=== PATIENT | male | born 1940 | race Caucasian/White ===

== ENCOUNTER 2016-11-07 23:25 | Observation (INO) | payer MEDICARE, MEDICAID ==
[~2016-11-07] VITALS: Ht 188 cm; Wt 58.1 kg
[~2016-11-07 23:25] MED LIST: ALBU8.5H2 INHALATION; AMOX-366 PO; ASPI81TA3 PO; ATOR40TA69 PO; CLOP75TA28 PO; HYDR-4003 PO; ISOS30TA4 PO; LISI-571 PO; METO25TA6 PO; PRE20 PO; SYMINH INHALATION
[2016-11-07 23:41] VITALS: BP 120/98; PULSE 95; RESP 16; O2SAT 95
[2016-11-08] VITALS (15 sets, daily range): BP systolic 97–134; BP diastolic 57–88; PULSE 52–118; RESP 14–26; O2SAT 88–94
[2016-11-08] LABS: BASOPHILS % (AUTO) 0.4 % (0-3); EOSINOPHILS % (AUTO) 0 % (0-5); MONOCYTES % (AUTO) 6.6 % (4-12); Mean Corpuscular Hemoglobin 29.2 pg (27.0-35.0); Mean Corpuscular Volume 88.8 fL (81-100); Platelet Count 198 bil/L (150-400)
[2016-11-08 00:16] LABS: TROPONIN T 0.01 ug/L (0.0-0.011)
[2016-11-08] MEDS ORDERED: Albuterol-Ipratropium 3 mL Inhalation Solution NEB ONE (01:40)
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
[2016-11-08] MEDS ORDERED: Albuterol 2.5 mg/3 mL Inhalation Solution NEB PRN (03:15)
[2016-11-08] MEDS ORDERED: Alum-Mag Hydrox-Simeth 30 mL Suspension PO PRN (03:15)
[2016-11-08] MEDS ORDERED: Polyethylene Glycol (PEG) 17 Gm Powder PO PRN (03:15)
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
--- NOTE | 2016-11-08 04:39 | NUR ---
Arrival to [facility] room 3019 Patient arrived to [facility] at 0330. Alert and oriented able to make needs known. admission assessment completed. patient unaware of his home medication name and dosing. States that his pharmacy is [facility] in [place]. No IV. patient on RA. denies SOB at this time. coughing occasionally swallowing his spit. Lungs sound coarse throughout will continue to monitor. Patient has a history of recent fall, bed alarm in place for safety.
[2016-11-08] MEDS: Albuterol-Ipratropium 3 mL Inhalation Solution NEB PRN ×2 (08:27→12:35)
[2016-11-08] MEDS: Fluticasone-Salmeterol 500-50 Inhaler INHALATION SCH ×2 (09:16→20:39)
[2016-11-08] MEDS: Heparin 5,000 Unit/mL Inj SUBQ SCH ×3 (09:18→23:38)
[2016-11-08] MEDS: Isosorbide Mononitrate 30 mg ER24 Tablet PO SCH (09:18)
--- NOTE | 2016-11-08 10:15 | DRSVH ---
PROCEDURE: X-RAY CHEST ONE VIEW, PORTABLE ([id number]) INDICATIONS: dyspnea TECHNIQUE: One view of the chest was acquired. COMPARISON: Merged With [facility], CR, XR CHEST 1VW (PORTABLE), 10/19/2016, 16:56. FINDINGS: Surgical changes and devices: Extensive postsurgical changes are redemonstrated in the mediastinum. Lungs and pleura: No pleural effusions or pneumothorax. There is hyperinflation of the lungs with f lattening of the hemidiaphragms compatible with COPD. there is bibasilar scarring again noted. No a cute consolidation. Mediastinum: Mediastinal contours appear unchanged. Heart size is normal. Bones and chest wall: No suspicious bony lesions. Overlying soft tissues appear unremarkable. IMPRESSION: 1. Findings compatible with COPD redemonstrated without acute consolidation. Dictated by: John Lo M.D. on 11/08/2016 at 10:11 Approved by: John Lo M.D. on 11/08/2016 at 10:11
[2016-11-08] MEDS: 0.9% Sodium Chloride 1,000 ML IV SCH ×3 (10:36→23:38)
--- NOTE | 2016-11-08 12:20 | NUR ---
IV/Nicotine/Diet/Sputum Pt with hx of smoking, last cigarette 2 days ago. Pt denied need for nicotine patch. Pt refused lunch, only had chocolate pudding off tray. When asked what else could be offered/favorite foods, pt pleasantly declined. When asked which foods were favored at home, responded with "a little bit of nothing". IV access d/c in ED. made aware. IVF d/c. Frequent wet/moist cough noted, obtained a sputum sample and sent to lab. Will continue with frequent rounding.
--- NOTE | 2016-11-08 15:14 | NUR ---
Social Work-initial assessment/readiness for discharge: Data:See initial assessment. Pt is a 76 y/o male who was admitted on 11/08/16 for COPD and generalized weakness per H&P. Pt's insurance is [employer] and PCP is Bryce William MD. EMR reviewed. SW met with pt at bedside to discuss discharge planning, SW role explained. Pt has been residing at home where he remains independent with basic ADLs. Pt uses a fww at baseline and does not drive. Pt has had HH in the past and has been to [facility] and [facility] in the past. Pt has no manager intermediate care or VA benefits. SW discussed DPOA/ advanced directive with pt, pt states he has completed this, SW encouraged pt to bring a copy into the hospital. PT evaluation is pending. SW provided pt with SNF and HH choice list. Pt would like to go back to [facility]. ROHAN reviewed EMR and pt has three day qualifying stay in September. SW faxed PASRR and facesheet to [facility] and provided access. Paperwork in the chart. SW will continue to follow. Assessment:Pt who would benefit from SNF. Plan:[facility] has been faxed. PT evaluation is pending. Pt has three day qualifying stay for SNF placement. Paperwork in the chart. SW will continue to follow. CATHERINE Mclaughlin Addendum: 11/08/16 at 1521 by ELOISA MALDONADO SS Amended: Links added.
--- NOTE | 2016-11-08 15:30 | NUR ---
NUTRITION ASSESSMENT: ASSESS:60 YO male known to our discipline admitted with generalized weakness, progressive to the point of falling 2 x prior to admission, started since chemo/radiation/new medication. He is currently being treated for thrush, hypoglycemia and pain. He has had a weight loss of 13.21% x 7 weeks, which indicates severe malnutrition. Family has been in discussion with hospice and yet remains full code. I discussed the potential for PEG tube placement in the event the family decides against hospice. Code status: limited interventions. 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 DIET:Heart healthy consistent carb. PO intake not yet recorded. Family reports he hasn't eaten anything for some time. He has no appetite. LABS: Reviewed. Chloride 94, Cr < 0.30, Glu 37, Ca 8.0, PABA 4. MEDICATIONS: Reviewed. Lasix, Coumadin. NUTRITION FOCUSED PHYSICAL ASSESSMENT: GI symptoms / stool: Family reporting constipation.Rodrigo: 12. Skin Integrity: Wound consult initiated related to open sacral wound; evaluation pending. ANTHROPOMETRICS: Current Wt: 50.6 kgBMI: 16.0 kg/m2. IBW: 72.73 kg (70% IBW) ESTIMATED NEEDS (CANCER CACHEXIA): Calories: 1771 - 2024 kcal (35 - 40 kcal / kg BW) Protein: 76 - 101 g protein (1.5 - 2.0 g / kg BW) NUTRITION DIAGNOSIS: 1)Severe malnutrition related to cancer cachexia, as evidenced by 13.21% weight loss x 7 weeks. INTERVENTION: 1) Will add supplements to trays. 2) [facility] in the event family wishes to pursue treatment. MONITOR/EVALUATE: Diet tolerance, PO intake, labs, GI/nutrition status. Follow up per high nutrition risk guidelines. Addendum: 11/08/16 at 1544 [address] THIS NOTE CHARTED ON WRONG PATIENT.
--- NOTE | 2016-11-08 15:56 | NUR ---
Evaluation completed. Please go to "Notes" then click on "Assessments and Notes" (bottom left corner of screen). Then select appropriate discipline tab on top of screen.
--- NOTE | 2016-11-08 16:27 | PCM.PNMED ---
Subjective Date of Service Nov 08, 2016 Exam Vital Signs Vital Sign - Last Date Time Temp Pulse Resp B/P Pulse Ox O2 Delivery O2 Flow Rate FiO2 11/08/16 14:31 36.8 53 18 97/57 92 Room Air 11/08/16 03:16 1 Lab and Diagnostics Result Diagram: 11/07/16234911/07/16 2350 Assessment & Plan Chart reviewed and the patient was examined. I agree with the admitting physician's assessment and plan. Disposition: Physical therapy recommends long term facility for this chronically ill patient. The patient was seen and examined together with Dr. Sullivan on 11/08/2013 and I agree with the history, exam and plan as outlined in the admission note. Pt was admitted today. Non billable rounding. VTE Prophylaxis: Sub-Q Heparin (Unfractionated) VTE Mechanical Devices: Venous Foot Pump Resuscitation Status: Limited Interventions Limited Interventions: Compressions, Cardioversion/Defibrillation, BiPAP, Medications and IV Fluid Destinee Sullivan DO Nov 08, 2016 16:27 Hi Mcfarland MD Nov 09, 2016 12:21
--- NOTE | 2016-11-08 17:23 | NUR ---
Observation information provided and explained.
--- NOTE | 2016-11-08 18:51 | NUR ---
RAMAKRISHNA Tele called reporting 18bts of VTACH in one-teens. Pt resting in bed. Asymptomatic. Will continue with frequent monitoring. Addendum: 11/08/16 at 1854 by DONATO LOPEZ RN Mg blood level ordered by
[2016-11-08 20:30] LABS: APPEARANCE,URINE HAZY (CLEAR,HAZY); COLOR,URINE YELLOW (YELLOW); OCCULT BLOOD,URINE NEGATIVE (NEGATIVE); PH,URINE 5.5 (5.0-8.0); UROBILINOGEN,URINE NORMAL (NORMAL)
[2016-11-08] MEDS ORDERED: Magnesium Sulf 2 Gm/50mL Water 2 GM in IV Premix 1 EACH IV ONE (23:05)
[2016-11-09] VITALS (12 sets, daily range): BP systolic 79–159; BP diastolic 41–84; PULSE 43–106; RESP 14–24; O2SAT 88–95
[2016-11-09] MEDS: Albuterol-Ipratropium 3 mL Inhalation Solution NEB PRN (04:50)
--- NOTE | 2016-11-09 05:29 | NUR ---
Breathing Patient awoke at 0430 complaining of shortness of breath, Patient 02 75% on RA. placed on 2L via NC o2 86%. RT called and up to give neb treatment. 02 up to 88%. patient encouraged to cough and deep breathe through nose. Will continue to monitor.
[2016-11-09] MEDS: Heparin 5,000 Unit/mL Inj SUBQ SCH ×2 (08:35→16:56)
[2016-11-09] MEDS: Isosorbide Mononitrate 30 mg ER24 Tablet PO SCH (08:35)
[2016-11-09] MEDS: Fluticasone-Salmeterol 500-50 Inhaler INHALATION SCH ×2 (08:35→19:46)
[2016-11-09] MEDS: HYDROcodone-APAP 5-325 mg Tablet PO PRN ×2 (08:37→17:33)
--- NOTE | 2016-11-09 08:57 | NUR ---
[facility] can accept with Dr. Ford to follow. Pt has 3 day inpt stay in September and is within the 30 day window. CATHERINE Mclaughlin
--- NOTE | 2016-11-09 08:57 | NUR ---
SNF choice list provided. CATHERINE Mclaughlin
[2016-11-09] MEDS: 0.9% Sodium Chloride 1,000 ML IV SCH (09:14)
[2016-11-09 09:39] LABS: Magnesium 2.1 mg/dL (1.6-2.6)
--- NOTE | 2016-11-09 10:49 | NUR ---
Social Work-readiness for discharge: Data:EMR Reviewed. Pt is on day 1 of hospitalization for COPD per H&P. Pt may be ready to discharge later today or tomorrow. PT worked with pt and pt only able to ambulated 2 ft, recommending SNF. SW spoke with Yuliet flores [facility] who confirms they are able to accept pt when ready and he has a 3 day qualifying stay in the last 30 days that he can use. Paperwork and PASRR in the chart. SW will continue to follow. Assessment:Pt who would benefit from SNF. Plan:[facility] has accepted with Dr. Ford to follow. Pt has a 3 day qualifying stay in the last 30 days that he can use. Paperwork and PASRR in the chart. SW will continue to follow. CATHERINE Mclaughlin
[2016-11-09 10:53] LABS: Mean Corpuscular Hemoglobin 28.9 pg (27.0-35.0); Mean Corpuscular Volume 89.4 fL (81-100)
--- NOTE | 2016-11-09 12:16 | NUR ---
HR/EKG Pt noted to be bradycardic and hypotensive. Tele called to report HR in low 40's then upper 30's. MD made aware. STAT EKG done, report given to MD. Pt asymptomatic. Lisinopril and Metoprolol d/c. Pt resting flat in bed. Bed alarm on. Call light in reach. Will continue with frequent rounding.
--- NOTE | 2016-11-09 16:13 | PCM.PNMED ---
Subjective Date of Service Nov 09, 2016 Subjective Today patient became hypotensive, bradycardic shortly after metoprolol 25 mg twice a day was given. Heart rate was in the high 30s, blood pressure in the 100/46 and trending downward. Patient is asymptomatic however. Patient had a ground-level fall on 11/07/2016, he reported "passed out". He was brought to [facility] initially for evaluation, which diagnosed him with left rib fracture and sent home. The shortness however worsen, and he was taken back from home by ambulance to [facility] ER for evaluation. Patient reported left flank pain, 8 out of 10, requiring multiple doses of Percocet. Patient also guards on that side. Exam Vital Signs Vital Sign - Last Date Time Temp Pulse Resp B/P Pulse Ox O2 Delivery O2 Flow Rate FiO2 11/09/16 13:53 36.7 45 16 79/43 89 Nasal Cannula 0.50 Intake and Output 11/08/16 11/08/16 11/09/16 Cumulative From/Thru 15:00 23:00 07:00 11/07/16 23:41 - 11/09/16 05:25 Intake Total 200 ml 200 ml Output Total 450 ml 450 ml Balance -250 ml -250 ml Intake Oral 200 ml 200 ml Output Urine Total 450 ml 450 ml Exam General: Cachectic HEENT: Normocephalic, atraumatic. External ears without defect. Pupils equal, round, and reactive to light and accommodation. Anicteric sclerae, moist conjunctivae, and no lid lag. Neck: Supple with full range of motion. No jugular venous distension. Cardiovascular: Regular rate and rhythm with no murmurs, rubs, or gallops appreciated Pulmonary: Wheezes bilaterally, some coarse breath, no noted crackles. Abdomen: Bowel tones present. Soft, tender on the left upper quadrant, guarding noted around that area, no ecchymosis noted Extremities: No clubbing, cyanosis, edema, or lymphadenopathy appreciated. Skin: Normal temperature, turgor, and texture; no rash, ulcers, or subcutaneous nodules appreciated. Neurological: Cranial nerves grossly intact. Normal muscle strength, tone, and bulk. Reflexes, coordination, and sensory function within normal limits. No known gait impairment. Psychiatric: Normal mood and affect. Alert and oriented to person, place, and time. IVs and Medications Medications Reviewed: Medications were reviewed in detail Medications Discontinued medication today Imdur metopolol lisinopril Lab and Diagnostics Result Diagram: 11/09/16 1045 11/09/16 0853 Assessment & Plan 76-year-old noncompliant male with h/o COPD, CAD, [place] s/p CABG, hypertension, atrial fibrillation not on anticoagulation, and recent NSTEMI presents with progressive shortness of breath and weakness. Had a He is being admitted for hypoxia and generalized weakness. Normocytic anemia, not present on admission, active - Hgb dropped from 14.8 to 10.9 - Uncertain etiology possibly secondary to trauma due to recent fall - Non contrast CT-abd Bradycardia, not present on admission, active - EKG shows juan pablo sinus - Possible medication related - Stop all beta blockers Hypotensive, not present on admission, active - Perhaps medication related - Stop lisinopril and Imdur - monitor Acute on chronic COPD exacerbation, present on admission, active - Severe COPD, fired hospice as he wanted to be readmitted to hospital should he gets SOB -Likely due to noncompliance. Possible viral URI given symptoms of coughs -Will continue with Duonebs Q4hwa -Short burst of Oral Prednisone 40mg x 3 days. -Keep O2 sats 88-92%. -Anti-tussive prn Paroxysmal A. Fib with RvR, POA - Hold metoprolol - hold aspirin, possible bleed. - May give Cardizem for HR >110 Generalized weakness, POA - Recently fell. - Social work and case management referral for placement. - PT/OT evaluation as needed Medication non compliance -Educate and Encourage medication compliance Acetaminophen for mild pain when necessary. Bowel regimen Senna and MiraLAX scheduled and PRN. Zofran when necessary for nausea and vomiting. Disposition: Likely be discharged on the today pending workup for anemia. VTE Prophylaxis: Sub-Q Heparin (Unfractionated) VTE Mechanical Devices: Intermittant Pneumatic CD Resuscitation Status: Limited Interventions Limited Interventions: Compressions, Cardioversion/Defibrillation, BiPAP, Medications and IV Fluid Keshav Carrillo DO Nov 09, 2016 16:13
[2016-11-09] MEDS ORDERED: 0.9% Sodium Chloride 1,000 ML IV SCH (16:15)
--- NOTE | 2016-11-09 16:58 | DRSVH ---
PROCEDURE: CT ABDOMEN AND PELVIS WITHOUT CONTRAST ([id number]) INDICATIONS: fall, retroperitoneal bleed? TECHNIQUE: Noncontrast 5 mm thick sections acquired from the diaphragms to the symphysis. 5 mm coronal and sagi ttal reformats were then performed. For radiation dose reduction, the following was used: automated exposure control, adjustment of mA and/or kV according to patient size. COMPARISON: [facility], CT, CT ABD PELVIS W CON, 07[facility]11/2016, 18:54[facility], 09/06/2016, 12:25. [facility], CT, CT ANGIO CHEST PE, 10/16, 9:53. FINDINGS: Image quality: Excellent. ABDOMEN: Lung bases: Lung bases are clear on the left except for slight atelectasis but there does appear to be mild or early pneumonia right lower lobe. Heart size is normal. Solid organs: Liver and spleen are normal in size. Gallbladder appears to contain small dependent l ayering calcifications, and there is soft tissue prominence that appears on prior CT scanning from to be contrast enhancing. This is suspicious for representing an early gallbladder malignancy. Pancreas is normal in contours. No adrenal nodules. Kidneys are normal in size, without hydronephro sis or nephrolithiasis. Peritoneum and bowel: Unenhanced bowel loops demonstrate normal wall thickness and caliber. No free fluid or air. Nodes and vessels: No retroperitoneal or mesenteric adenopathy by size criteria. Aorta and inferior vena cava are normal in caliber. Miscellaneous: No ventral hernias. PELVIS: Genitourinary: Bladder wall thickness is normal. Miscellaneous: No inguinal hernias or adenopathy. Bones: No suspicious bony lesions. No vertebral body compression fractures. IMPRESSION: 1. There is an unexpected coincidental finding of what appears to be an enhancing polypoid mass at t he gallbladder fundus, in addition to several posterior layering gallstones. Is recommended to obtai n dedicated gallbladder ultrasound tomorrow with attention to the gallbladder fundus to determine whe ther underlying early gallbladder malignancy is present. 2. Mild right lower lobe pneumonia. 3. No posttraumatic hemorrhage is found. Dictated by: Damián Donald M.D. on 11/09/2016 at 16:56 Approved by: Damián Donald M.D. on 11/09/2016 at 16:56
[2016-11-09] MEDS ORDERED: guaiFENesin 600 mg ER12 Tablet PO SCH (20:30)
[2016-11-10] VITALS (8 sets, daily range): BP systolic 94–125; BP diastolic 50–73; PULSE 57–69; RESP 16–26; O2SAT 86–95
[2016-11-10] MEDS: Heparin 5,000 Unit/mL Inj SUBQ SCH ×3 (00:15→16:30)
--- NOTE | 2016-11-10 06:06 | NUR ---
Oxygen Patient awoke this morning complaining that the oximask was making him cough. Patient switched to nasal cannula per preference. 1L 02 saturations 88-91%. patient coughing up thick sputum at bedside. will continue to monitor
[2016-11-10 08:17] LABS: BASOPHILS % (AUTO) 0.1 % (0-3); EOSINOPHILS % (AUTO) 0.1 % (0-5); MONOCYTES % (AUTO) 3.9 % (4-12); Mean Corpuscular Hemoglobin 28.6 pg (27.0-35.0); Mean Corpuscular Volume 90.6 fL (81-100); NEUTROPHILS % (AUTO) 76.1 % (40-74); Platelet Count 167 bil/L (150-400)
[2016-11-10] MEDS: Fluticasone-Salmeterol 500-50 Inhaler INHALATION SCH (10:41)
--- NOTE | 2016-11-10 11:06 | NUR ---
11/10/16 Wound Care [facility] Patient assessed for pressure ulcer protocol. Found to have a cluster of 4 stage III pressure ulcers to sacrum, present on admission. No other areas of redness or pressure noted. Patient with keratotic scabbing to right hip in areas of scaring that appears to be area of previous, now healed, skin breakdown. Patient instructed in importance of turning side to side only and avoiding supine position to decrease pressure to areas of ulceration on sacrum, however patient refusing stating he cannot sleep in any position other than on his back. Patient on left side with pillow behind back, complaining of position but not actively moving out of it, at end of treatment. Pt reinstructed in importance of turning side to side only. Patient currently on P500 DALE bed. Patient reports pain to heels bilaterally but no non-blanchable redness noted. Attempted to float patient's heels. Patient instructed in importance of keeping pressure off heels to decrease risk of skin breakdown and decrease pain. Patient refuses to float heals, kicking pillow out of the way. Patient also refuses pillow between knees despite instruction in importance of keeping bony knees from touching. Patient has history of non-compliance with medical instruction at home. Proximal stage III pressure ulcer measures 0.8cm L x 0.4cm W x 0.2cm D. Other 3 extend distally into gluteal cleft and measures 0.2 cm L x 0.2cm W x 0.1cm D. Covered with Mepilex. Nursing to turn side to side as patient allows and change dressing daily and as needed if soiled. Wound care to follow as needed. Addendum: 11/10/16 at 1258 by AKOSUA SANTANA Patient also with large hyperkeratotic lesion to right ear making right side-lying painful. Nurse created donut to allow patient to position on right side and off-load right ear to allow turning side to side.
[2016-11-10] MEDS: Codeine-guaiFENesin 10 mL Syrup PO PRN ×2 (11:46→16:45)
[2016-11-10] MEDS ORDERED: GUAI10LI PO (15:02)
--- NOTE | 2016-11-10 16:02 | PCM.DIMED ---
Destinee Sullivan DO 11/10/16 1507: Discharge Instructions Date of Service Nov 10, 2016 Dates of Hospitalization Nov 08, 2016 at 03:03 Discharge Diagnosis Discharge Diagnosis Normocytic anemia, not present on admission, active Bradycardia, not present on admission, active Hypotensive, not present on admission, active Acute on chronic COPD exacerbation, present on admission, active Paroxysmal A. Fib with RVR, present on admission. Rate controlled at discharge. Gallbladder mass of unknown significance: NEEDS an outpatient ultrasound to evaluate Generalized weakness, chronic and present on admission Medication non compliance Medication Instructions Hold the lisinopril and metoprolol that you were previously taking as your heart rate became too slow with them. For cough, you may take 5mL of guaifenesin/codeine syrup by mouth every 4hours as needed. Test Results Diet Other (Dysphagia mechanical diet) Activity Other (Physical therapy at Nursing Home.) Call your provider Fever or Chills, Shortness of breath (if worsening), Bleeding, Chest pain, Vomitting, Excessive diarrhea, Weakness (unilateral) Patient Instructions You need to have an ultrasound done of your gallbladder to evaluate the mass seen on CT of your abdomen. You will need to fast for 8 hours prior to this imaging study ( no food or drink other than water). The gallbladder ultrasound has been scheduled for 11/12/2016 with a check in time of 2:25pm. Follow-up plan Ultrasound gallbladder to evaluate gallbladder mass seen on CT abdomen. Follow-up Provider: Vamsi Jules MD Follow-up with PCP in: 1 week Jeffrey Paul DO 11/10/16 3489: Discharge Instructions Attending's Statement Read and agree Destinee Sullivan DO Nov 10, 2016 15:07 Jeffrey Paul DO Nov 10, 2016 16:59
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
--- NOTE | 2016-11-10 16:33 | NUR ---
Social Work-discharge: Data:EMR Reviewed. Pt is on day 2 of hospitalization for COPD per H&P. Pt is medically stable to discharge. PT continues to recommend SNF. Pt has 3 days qualifying stay in last month and has been accepted at [facility]. ROHAN spoke with Yuliet at [facility] who confirmed acceptance today and arranged cabulance for 1644. ROHAN faxed orders and created packet. ROHAN updated pt at bedside and called nephew Henrry to provide update. Henrry will call sister Heydi. Rn,UC,pt/family, and [facility] all updated and agreeable to plan. Assessment:Pt who would benefit from SNF. Plan:Pt to discharge to [facility] SNF today via [facility] at 1645. Rn,UC,pt/family, and [facility] all updated and agreeable to plan. CATHERINE Mclaughlin
--- NOTE | 2016-11-10 17:01 | PCM.DC.MED ---
Discharge Summary Date of Service Nov 10, 2016 Dates of Hospitalization Date of Hospital Admission Nov 08, 2016 at 03:03 Date of Discharge: Nov 10, 2016 Providers: Admitting Physician: Robbin William MD Primary Care Physician: Robbin William MD Attending Physician: Robbin William MD Diagnosis at Time of Discharge Diagnosis at Time of Discharge Normocytic anemia, not present on admission, active Bradycardia, not present on admission, active Hypotensive, not present on admission, active Acute on chronic COPD exacerbation, present on admission, active Paroxysmal A. Fib with RVR, present on admission. Rate controlled at discharge. Gallbladder mass of unknown significance: NEEDS an outpatient ultrasound to evaluate Generalized weakness, chronic and present on admission Medication non compliance Brief History Per H&P by Dr Pizarro: Patient is a 76-year-old male with COPD, CAD, [place] s/p CABG, hypertension, atrial fibrillation not on anticoagulation, and recent NSTEMI presents with progressive shortness of breath and weakness. The patient is a vague and poor historian but is able to voice that he has been having some increased SOB and rib pain from all of his coughing the past few days. Denies any fevers, CP, or n /v. He is a non-compliant patient and has not been taking his recommended medications. He qualifies for home O2 but does not want to use it. Per report, he has qualified for hospice but self discontinued. In the ED he was found to be hypoxic in the low 80s SpO2 with exertion. He was also too weak to ambulate. Hospital Course The following were addressed during this hospitalization: 76-year-old noncompliant male with h/o COPD, CAD, [place] s/p CABG, hypertension, atrial fibrillation not on anticoagulation, and recent NSTEMI who presented to the ER with progressive shortness of breath and weakness. He was admitted for hypoxia and generalized weakness. Normocytic anemia, not present on admission, active - Hgb dropped from 14.8 to 10.9 - Uncertain etiology possibly secondary to trauma due to recent fall - Non contrast CT-abdomen Acute on chronic COPD exacerbation, present on admission, active -Severe COPD, fired hospice as he wanted to be readmitted to hospital should he develop worsening dyspnea -Exacerbation likely secondary to noncompliance. -Continued with Duonebs Q4hwa -Short burst of Oral Prednisone 40mg x 3 days provided. -Kept O2 sats 88-92%. -Guaifenesin /codeine cough syrup given with improvement of his cough Bradycardia, not present on admission, resolved - EKG with sinus bradycardia - Possibly secondary to pharmacological therapy - Discontinued beta jazz therapy Hypotensive, not present on admission, resolved - Perhaps medication related - Held Imdur and metoprolol - Monitored Paroxysmal Atrial Fibrillation, POA - Holding metoprolol due to bradycardia - stable Generalized weakness, POA - Secondary to his chronic disease - Placement at a assisted facility Medication non compliance -Educate and Encourage medication compliance Malnutritioned with a BMI of 16.4 - Secondary to chronic disease with relative inactivity and chronically poor food intake Acetaminophen for mild pain when necessary. Bowel regimen Senna and MiraLAX scheduled and PRN. Zofran when necessary for nausea and vomiting. Exam Vital Signs (Last) Date Time Temp Pulse Resp B/P Pulse Ox O2 Delivery O2 Flow Rate FiO2 11/10/16 12:29 36.6 57 24 125/68 94 Nasal Cannula 1.00 Exam On the date of discharge: General: Chronically ill appearing male resting comfortably in bed, supine. Cachectic and appears older than his stated age. No acute distress. Supplemental oxygen via nasal cannula at 1L/h. HEENT: Normocephalic, atraumatic. Elongated hyperkeratotic lesion on the right auditory helix. Anicteric sclerae. Moist mucus membranes Cardiovascular: Regular rate and rhythm with no murmurs, rubs, or gallops appreciated Pulmonary: Wheezes bilaterally, coarse breath sounds throughout. No conversational dyspnea, tripoding, or accessory muscle use Abdomen: Normoactive bowel tones. Soft, nontender and nondistended Extremities: No clubbing, cyanosis, or edema. Very thin extremities with symmetrically decreased tone and bulk. Neurological: Cranial nerves grossly intact. Psychiatric: Normal mood and affect. Alert and oriented to person, place, and time. Test 11/07/16 23:37 11/07/16 23:50 11/08/16 20:01 11/09/16 08:53 Hold Purple Top Tube Received (Received) Hold Blue Top Tube Received (Received) Hold Red Top Tube Received (Received) Hold [place] Top Tube Received (Received) Total Bilirubin 0.3mg/dL (0.0-1.2) Aspartate Amino Transf (AST/SGOT) 26U/L (0-50) Alanine Aminotransferase (ALT/SGPT) 21U/L (0-44) Alkaline Phosphatase 66U/L (25-160) Troponin T 0.010ug/L (0.0-0.011) Total Protein 7.7g/dL (6.4-8.4) Albumin 3.6g/dL (3.4-5.0) Urine Color Yellow (YELLOW) Urine Appearance Hazy (CLEAR,HAZY) Urine pH 5.5 (5.0-8.0) Urine Specific [place] 1.025 (1.003-1.035) Urine Protein Negativemg/dL (NEG,TRACE) Urine Glucose (UA) Negativemg/dL (NEGATIVE) Urine Ketones Negativemg/dL (NEGATIVE) Urine Occult Blood Negative (NEGATIVE) Urine Nitrite Negative (NEGATIVE) Urine Bilirubin Negative (NEGATIVE) Urine Urobilinogen Normalmg/dL (NORMAL) Urine Leukocyte Esterase Trace (NEGATIVE) Urine RBC 0-2/hpf (0-2) Urine WBC 6-10/hpf (0-5) Urine Epithelial Cells Moderate/hpf (NONE-MOD) Urine Crystals None seen (NONE SEEN) Urine Bacteria Few/hpf (NONE-FEW) Urine Hyaline Casts Rare/lpf (NONE) Urine Granular Casts None seen (NONE SEEN) Urine Waxy Casts None seen (NONE SEEN) Urine Red Blood Cell Casts None seen (NONE SEEN) Urine White Blood Cell Casts None seen (NONE SEEN) Urine Mucus Present (None Seen) Urine Trichomonas None seen (NONE SEEN) Urine Yeast None (NONE SEEN) Urinalysis Comment None Urine Culture Reflexed Indicated Sodium Level 137mEq/L (134-144) Potassium Level 4.0mEq/L (3.5-5.2) Chloride Level 99mEq/L (97-108) Carbon Dioxide Level 29mmol/L (18-29) Blood Urea Nitrogen 25mg/dL (8-27) Creatinine 0.71mg/dL (0.76-1.27) Estimat Glomerular Filtration Rate 115mL/min (>59) Glucose Level 83mg/dL (60-99) Calcium Level 8.8mg/dL (8.5-10.1) Magnesium Level 2.1mg/dL (1.6-2.6) Procalcitonin 0.28ng/mL (See Comment) Test 11/10/16 05:25 White Blood Count 9.2th/mm3 (3.8-10.1) Red Blood Count 4.05mil/mm3 (4.40-5.80) Hemoglobin 11.6g/dL (13.8-17.2) Hematocrit 36.7% (41.0-50.0) Mean Corpuscular Volume 90.6fL (81-100) Mean Corpuscular Hemoglobin 28.6pg (27.0-35.0) Mean Corpuscular Hemoglobin Concent 31.6% (32.0-37.0) Red Cell Distribution Width 14.9% (12.3-15.4) Platelet Count 167bil/L (150-400) Neutrophils (%) (Auto) 76.1% (40-74) Lymphocytes (%) (Auto) 19.6% (14-46) Monocytes (%) (Auto) 3.9% (4-12) Eosinophils (%) (Auto) 0.1% (0-5) Basophils (%) (Auto) 0.1% (0-3) Prealbumin 8mg/dL (20-40) Discharge Medications Discharge Medications Aspirin Chew (Aspirin Chew) 81 Mg Chew 81 MG PO DAILY Prescribed by: DEE DEE GILLILAND MD Atorvastatin Calcium (Atorvastatin Calcium) 40 Mg Tablet 40 MG PO HS Prescribed by: DEE DEE GILLILAND MD Budesonide/Formoterol 160-4.5 mcg Inh (Symbicort 160-4.5 mcg Inh) 120 Puff Inhaler 2 PUFFS INHALATION BID Prescribed by: MATI PATE MD Clopidogrel (Clopidogrel) 75 Mg Tablet 75 MG PO DAILY Prescribed by: DEE DEE GILLILAND MD Isosorbide MN ER (Isosorbide MN ER) 30 Mg Tab.er.24h 30 MG PO DAILY (Reported) Lisinopril (Lisinopril) 5 Mg Tablet 5 MG PO DAILY (Reported) Metoprolol Tartrate (Metoprolol Tartrate) 25 Mg Tablet 25 MG PO BID (Reported) As needed Albuterol HFA (Proair HFA) 8.5 Gm Hfa.aer.ad 2 PUFFS INHALATION q4-6h PRN PRN For Shortness of Breath Prescribed by: MATI PATE MD Guaifenesin/Codeine Phosphate (Guaifenesin-Codeine Syrup) 10 Ml Liquid 5 ML PO Q4H PRN PRN For Cough Use only as needed. Prescribed by: DAMON RANDALL, Hydrocodone-Acetaminophen 5-325 mg (Hydrocodone-Acetaminophen 5-325 mg) 1 Each Tablet 1 TABLET PO HS PRN PRN For Pain (Reported) Followup Plan Disposition: [facility] where he is to received physical therapy, meals, and supplemental oxygen. Follow-up plan Ultrasound gallbladder to evaluate gallbladder mass seen on CT abdomen. Discharge Diet: Other (Dysphagia mechanical diet) Discharge Activity: Other (Physical therapy at [facility] Patient Instructions You need to have an ultrasound done of your gallbladder to evaluate the mass seen on CT of your abdomen. You will need to fast for 8 hours prior to this imaging study ( no food or drink other than water). The gallbladder ultrasound has been scheduled for 11/12/2016 with a check in time of 2:25pm. Follow-up Provider: Vamsi Jules MD Follow-up with PCP in: 1 week Time spent 45 minutes Attending Statement I have seen and evaluated patient at bedside and also directly supervised care provided by resident physician. I agree with above documentation. Please note, findings of sputum culture were discussed with ID specialist Dr Guerrero who agreed no further treatment warranted given otherwise stable medical condition of patient at time of discharge. copies to: Robbin William MD, Rachel M DO Nov 10, 2016 16:28 Jeffrey Paul DO Nov 11, 2016 13:29
--- NOTE | 2016-11-10 17:01 | NUR ---
Discharge D/C to [facility], report called to Lexi Ramon. Packet provided to dumpcart driver. Pt escorted off floor with all belongings via transport and w/c. Addendum: 11/10/16 at 1706 by DAMON MURRAY RN Provider d/c information and patient d/c instructions faxed to [phone] by provider request for ultrasound on gallbladder as out patient.
== END 2016-11-10 16:56 ==
LOC: SED 23:25 → MPC 11-08 03:03
PROVIDERS: ADMIT Family Medicine; ATTEND Family Medicine
DX: D64.9 Anemia, unspecified (principal); R00.1 Bradycardia, unspecified; J44.1 Chronic obstructive pulmonary disease with (acute) exacerbation; I48.0 Paroxysmal atrial fibrillation; R19.09 Other intra-abdominal and pelvic swelling, mass and lump; R53.1 Weakness; I25.10 Atherosclerotic heart disease of native coronary artery without angina pectoris; I25.2 Old myocardial infarction; I10 Essential (primary) hypertension; E46 Unspecified protein-calorie malnutrition; I73.9 Peripheral vascular disease, unspecified; F17.210 Nicotine dependence, cigarettes, uncomplicated; Z91.14 Patient's other noncompliance with medication regimen; J96.01 Acute respiratory failure with hypoxia; Z95.1 Presence of aortocoronary bypass graft; Z79.82 Long term (current) use of aspirin; Z79.51 Long term (current) use of inhaled steroids
CPT/HCPCS: 36415; 71010; 74176; 80048; 80053; 81000; 82308; 83735; 84134; 84484; 85014; 85018; 85025; 85027; 87070; 87077; 87086; 87088; 87186; 87205; 93005; 94640; 94664; 94799; 96374; 97161; 99285; G0378; G8978; G8979; J1644; J7030; J7620

== ENCOUNTER 2016-12-31 07:19 | Emergency (ER) | payer MEDICARE, MEDICAID ==
[~2016-12-31] VITALS: Ht 188 cm; Wt 59.1 kg
[~2016-12-31 07:19] MED LIST changes: -AMOX-366 PO; +GUAI10LI PO; -PRE20 PO
[2016-12-31 07:25] VITALS: BP 146/75; PULSE 63; RESP 20; O2SAT 100
--- NOTE | 2016-12-31 07:31 | ED.REPORT ---
HPI-General Illness Date of Service Dec 31, 2016 ED Provider: Penelope Shen MD The patient is a 76 year old male w/ a h/x COPD, CAD, NM s/p CABG, hypertension , atrial fibrillation not on anticoagulation who presents to the ED due to back pain onset this morning. Pt also complains of SOB. He has a hx of back pain from multiple back surgeries. He went to [facility] last week where they took a chest x-ray. He stopped taking his anticoagulants due to diarrhea. He's out of his multi dose inhaler for several days. He denies chest pain. Dr. William is his regular doctor and his pharmacy is [facility] in [place]. His most recent visit was 11/08/16 for similar symptoms. He has previously been in and out of hospice care. Nursing Notes Stated Complaint: SHORT OF BREATH Chief Complaint: General Complaint Nursing Notes Reviewed: Yes Allergies: Coded Allergies: No Known Allergies (Verified , 10/19/16) Scheduled Aspirin Chew (Aspirin Chew) 81 Mg Chew 81 MG PO DAILY Atorvastatin Calcium (Atorvastatin Calcium) 40 Mg Tablet 40 MG PO HS Budesonide/Formoterol 160-4.5 mcg Inh (Symbicort 160-4.5 mcg Inh) 120 Puff Inhaler 2 PUFFS INHALATION BID Clopidogrel (Clopidogrel) 75 Mg Tablet 75 MG PO DAILY Isosorbide MN ER (Isosorbide MN ER) 30 Mg Tab.er.24h 30 MG PO DAILY Lisinopril (Lisinopril) 5 Mg Tablet 5 MG PO DAILY Metoprolol Tartrate (Metoprolol Tartrate) 25 Mg Tablet 25 MG PO BID Scheduled PRN Albuterol HFA (Proair HFA) 8.5 Gm Hfa.aer.ad 2 PUFFS INHALATION q4-6h PRN PRN For Shortness of Breath Guaifenesin/Codeine Phosphate (Guaifenesin-Codeine Syrup) 10 Ml Liquid 5 ML PO Q4H PRN PRN For Cough Use only as needed. Hydrocodone-Acetaminophen 5-325 mg (Hydrocodone-Acetaminophen 5-325 mg) 1 Each Tablet 1 TABLET PO HS PRN PRN For Pain General Time Seen by MD: 07:21 Chief Complaint Back pain Hx Obtained From: Patient Arrived By: Ambulance Sudden in Onset?: Yes Symptom Duration: Since onset Location: : Back Radiation: : Does not radiate Severity: Current: Moderate Recent Healthcare: No recent doctor visit Similar Sx Previous: Yes Past Medical History Past Medical History 2012 History of NM 2 Coronary disease Prior CABG History of atrial fibrillation (not on medication for notes) Possible gallbladder mass per admit workup August 2016 Peripheral vascular disease with right iliac stent Reports: COPD, Coronary artery disease, Hypertension Reports: Atrial fibrillation Past Surgical History CABG x2 Back surgery Neck surgery Right iliac stent Family History Noncontributory Smoking History Current Every Day Smoker Social History been on and off hospice previously has home help Alcohol Use: Denies alcohol use Drug Use: Denies drug use Other Social History: Lives alone, Local resident Ambulatory Status Walker Review of Systems Full Review of Systems Respiratory: Reports: Shortness of breath Cardiovascular: Denies: Chest pain Musculoskeletal: Reports: Back pain Complete sys rev & neg: except as marked. Physical Exam Vital Signs Vital Signs Date Time Temp Pulse Resp B/P Pulse Ox O2 Delivery O2 Flow Rate FiO2 12/31/16 11:54 36.7 115 20 139/72 92 Room Air 12/31/16 11:51 115 20 139/72 92 Room Air 12/31/16 09:47 68 20 125/70 91 Room Air 12/31/16 08:22 73 20 94 Room Air 12/31/16 07:25 36.7 63 20 146/75 100 Initial VS: Reviewed Head / Eyes: Atraumatic, Normocephalic, PERRL ENT: Mucous membranes moist, Conjunctiva normal, No scleral icterus Neck: Supple, Non-tender, Full range of motion Abdomen / GI: Soft, Non-tender, No guarding, No rebound, No distention General/Constitutional: Awake, Cooperative Appearance / Presentation: Positive: Cachectic smells of cigarettes Rales / Rhonchi: Positive: Rales bilateral bases bilateral hoarse breath sounds bilateral crackles Heart Rate / Rhythm: Positive: Irreg irregular rhythm Heart Sounds / Murmur: Positive: Murmur present... (IV/) Upper Extremities Upper Extremity / MS: Atraumatic, Inspection NL suture in right forearm well healed and needs to be removed Trauma / Burn / Environmental: Positive: Abrasion (small abrasion on right ankle ) 1+ lower extremity adenopathy Interpretation & Diagnostics Interpretation & Diagnostics: Records from [facility] Reviewed- 12/26/16 Imaging: LS spine shows arthritis and chronic T12 compression fracture mild to moderate otherwise no acute compression fracture. Lab Results Interpretation Result Diagram: 12/31/16 0805 12/31/16 0805 Test 12/31/16 08:05 White Blood Count 8.9th/mm3 (3.8-10.1) Red Blood Count 3.98mil/mm3 (4.40-5.80) Hemoglobin 11.6g/dL (13.8-17.2) Hematocrit 37.1% (41.0-50.0) Mean Corpuscular Volume 93.2fL (81-100) Mean Corpuscular Hemoglobin 29.1pg (27.0-35.0) Mean Corpuscular Hemoglobin Concent 31.3% (32.0-37.0) Red Cell Distribution Width 17.3% (12.3-15.4) Platelet Count 227bil/L (150-400) Neutrophils (%) (Auto) 59.2% (40-74) Lymphocytes (%) (Auto) 30.8% (14-46) Monocytes (%) (Auto) 7.7% (4-12) Eosinophils (%) (Auto) 2.0% (0-5) Basophils (%) (Auto) 0.2% (0-3) Sodium Level 143mEq/L (134-144) Potassium Level 4.0mEq/L (3.5-5.2) Chloride Level 105mEq/L (97-108) Carbon Dioxide Level 26mmol/L (18-29) Blood Urea Nitrogen 17mg/dL (8-27) Creatinine 0.72mg/dL (0.76-1.27) Estimat Glomerular Filtration Rate 113mL/min (>59) Glucose Level 93mg/dL (60-99) Lactic Acid Level 0.9mmol/L (0.4-2.0) Calcium Level 9.6mg/dL (8.5-10.1) Total Bilirubin 0.2mg/dL (0.0-1.2) Aspartate Amino Transf (AST/SGOT) 16U/L (0-50) Alanine Aminotransferase (ALT/SGPT) 9U/L (0-44) Alkaline Phosphatase 89U/L (25-160) Troponin T 0.010ug/L (0.0-0.011) Total Protein 6.5g/dL (6.4-8.4) Albumin 3.8g/dL (3.4-5.0) Procalcitonin 0.08ng/mL (0.00-0.08) ECG Interpretation ECG Interpretation: Atrial premature complex LVH w/ secondary repolarization abnormality Time: 08:14 Interpreted by: ED physician Normal ECG Interpretation: Normal sinus rhythm (67), No change from prior ECGs Re-Eval/Medical Decision Med Decision/Clinical Course Discussion with Dr. Josue. Has not seen the patient and months. Is aware of recent hospitalizations. #1 medical noncompliance recently stopped all medications, does not know what medications he takes #2 living alone, does have home health unclear if it is simply for helping with washing and cleaning also medical management. Dr. Josue will make sure that a home health nurses out tomorrow to help with medical management #3 mild COPD exacerbation due to lack of inhalers. We will give him prescription for new inhalers #4 intermittent atrial fibrillation. Presented in sinus rhythm at a rate of 60 at about 10:00 converted to atrial fibrillation and a rate of 110. Did not sense this conversion did not have any chest pain and shortness of breath has not changed #5 chronic low back pain, reviewed x-ray findings and reminded him of his chronic compression fracture. #6 hypertension currently not taking any medications #7 chronic diarrhea he is convinced is related to HIS medications however it has not changed much with stopping medications No evidence of acute failure COPD exacerbation severe enough for hospital admission and ammonia congestive heart failure We will discharge to home, home health visit tomorrow follow up with Dr. Josue next week medications attempted to be reviewed, patient does not note is taking, recent nexgeb notes are reviewed and indicate only "see facility list" call to [facility] [phone] Meds per them include: Plavix 75 daily 81 asa atorvastatin 40mg Isosorbide mononitrate ER 30 daily Metoprolol titrate twice a day 25 mg Lisniopril 5 Symbicort 160 2puff BID Ventolin 2 puff q 4-6 Will continue metoprolol 25 BID and inhalers only at this time. Refills have been called in. home health to check on patient tomorrow, Dr. Josue will try to arrange an appointment for next week Medications will be available [facility] in [place] by 3:00 this afternoon Time of Eval: 10:26 Patient Status: Condition improved Re-Evaluation/Progress Note: Pt is comfortable and wheezing is significantly reduced. Plan to consult w/ Dr. William. Time of Eval: 10:31 Re-Evaluation/Progress Note: Pt is back into atrial fibrillation. Consultation : Referral / Consult Name: Robbin William MD Consulted With: Hospitalist Call Returned at: 10:28 Cad Manager: Agrees with eval, Agrees with plan Counseled Regarding: Diagnosis, Lab results, Need for follow-up, When/why to return to ED Discharge & Departure Primary Impression: COPD exacerbation Additional Impressions: Shortness of breath Noncompliance with medication regimen Chronic back pain Paroxysmal a-fib Disposition: Home Discharge Condition All VS Reviewed: Yes Condition: Stable Additional Instructions: Thank you for coming in today. I spoke with Dr. Josue, he will arrange for a home health nurse come out and make sure you are doing well and using your medications by tomorrow. He will also try to schedule an appointment for you early next week to make sure you are doing well I understand that all of your medications are believed to be causing diarrhea. I am going to suggest that we decreased your medications to the minimal amount possible to keep you as healthy as possible You definitely needs your inhalers, Symbicort and Ventolin. Symbicort 2 puffs in the morning and 2 puffs at night. Ventolin will be 2 puffs every 6 hours if you are coughing or feeling short of breath You also need to continue your metoprolol. This medicine controls your heart rate and your blood pressure and will help keep you from going into heart failure because your heart is going too fast you need to take this in the morning and at night with the Symbicort puffs The more you are able to take some of your medicationsm the better you will feel and the less time you will need to spend in emergency rooms and hospitals I wish you the best Referrals: Robbin William MD (PCP) Scribe Attestation Portion of this note were transcribed by Ilda Duran. I, Dr. Shen, personally performed the history, physical exam, and medical decision-making: I reviewed and confirmed the accuracy for the information in the transcribed note. Signed by: pam He, 12/31/16 0900 copies to: Bari Ford MD; Robbin William MD, Shawna L MD Dec 31, 2016 07:31 Ilda Duran Dec 31, 2016 07:50
[2016-12-31] MEDS ORDERED: Albuterol-Ipratropium 3 mL Inhalation Solution NEB ONE (07:55)
[2016-12-31 08:16] LABS: BASOPHILS % (AUTO) 0.2 % (0-3); MONOCYTES % (AUTO) 7.7 % (4-12); Mean Corpuscular Hemoglobin 29.1 pg (27.0-35.0); Mean Corpuscular Volume 93.2 fL (81-100); NEUTROPHILS % (AUTO) 59.2 % (40-74); Platelet Count 227 bil/L (150-400)
[2016-12-31 08:22] VITALS: PULSE 73; RESP 20; O2SAT 94
[2016-12-31 08:48] LABS: TROPONIN T 0.01 ug/L (0.0-0.011)
[2016-12-31 09:47] VITALS: BP 125/70; PULSE 68; RESP 20; O2SAT 91
[2016-12-31 11:51] VITALS: BP 139/72; PULSE 115; RESP 20; O2SAT 92
[2016-12-31 11:54] VITALS: BP 139/72; PULSE 115; RESP 20; O2SAT 92
== END 2016-12-31 11:53 | disposition home or self-care (01) ==
LOC: SED 07:19
DX: J44.1 Chronic obstructive pulmonary disease with (acute) exacerbation (principal); R06.02 Shortness of breath; Z91.14 Patient's other noncompliance with medication regimen; G89.4 Chronic pain syndrome; I48.0 Paroxysmal atrial fibrillation; I25.10 Atherosclerotic heart disease of native coronary artery without angina pectoris; I25.2 Old myocardial infarction; Z95.1 Presence of aortocoronary bypass graft; I10 Essential (primary) hypertension; Z79.82 Long term (current) use of aspirin; F17.200 Nicotine dependence, unspecified, uncomplicated
CPT/HCPCS: 36415; 80053; 82308; 83605; 84484; 85025; 93005; 94664; 99284; J7620

== ENCOUNTER 2017-05-28 00:52 | Emergency (ER) | payer MEDICARE, MEDICAID ==
[~2017-05-28] VITALS: Ht 188 cm; Wt 62.0 kg
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
[2017-05-28 00:57] VITALS: BP 138/46; PULSE 72; RESP 20; O2SAT 95
[2017-05-28 01:09] LABS: BASOPHILS % (AUTO) 0.2 % (0-3); EOSINOPHILS % (AUTO) 1.2 % (0-5); MONOCYTES % (AUTO) 7.9 % (4-12); Mean Corpuscular Hemoglobin 29.9 pg (27.0-35.0); NEUTROPHILS % (AUTO) 66.7 % (40-74); Platelet Count 274 bil/L (150-400)
[2017-05-28 01:30] LABS: Magnesium 1.6 mg/dL (1.6-2.6)
[2017-05-28 01:44] LABS: TROPONIN T 0.01 ug/L (0.0-0.011)
[2017-05-28 03:14] VITALS: BP 151/75; PULSE 68; RESP 17; O2SAT 97
--- NOTE | 2017-05-28 09:53 | DRSVH ---
PROCEDURE: X-RAY CHEST ONE VIEW, PORTABLE ([id number]) INDICATIONS: CHEST PAIN TECHNIQUE: One view of the chest was acquired. COMPARISON: [facility], CR, XR CHEST 1VW (PORTABLE), 11/07/2016, 23:51. FINDINGS: Surgical changes and devices: Extensive postsurgical changes are redemonstrated in the mediastinum. Lungs and pleura: No pleural effusions or pneumothorax. There is hyperinflation of the lungs with f lattening of the hemidiaphragms compatible with COPD. there is bibasilar scarring again noted. No a cute consolidation. Mediastinum: Mediastinal contours appear unchanged. Heart size is normal. Bones and chest wall: No suspicious bony lesions. Overlying soft tissues appear unremarkable. Supply Analyst janeen right sternoclavicular separation. IMPRESSION: Lung volumes are increased suggesting COPD, correlate with pulmonary functions test. No acute cardiopulmonary disease. Dictated by: Branden Aleman [facility] Interpreted: Deep Morris MD on 05/28/2017 at 8:53 Approved by: Deep Morris M.D. on 05/28/2017 at 9:51
== END 2017-05-28 03:15 | disposition home or self-care (01) ==
LOC: SED 00:52
DX: R07.89 Other chest pain (principal); R07.81 Pleurodynia; R06.02 Shortness of breath; I11.9 Hypertensive heart disease without heart failure; I48.91 Unspecified atrial fibrillation; I25.10 Atherosclerotic heart disease of native coronary artery without angina pectoris; I25.2 Old myocardial infarction; J44.9 Chronic obstructive pulmonary disease, unspecified; F17.200 Nicotine dependence, unspecified, uncomplicated; Z95.820 Peripheral vascular angioplasty status with implants and grafts; Z95.1 Presence of aortocoronary bypass graft; Z79.82 Long term (current) use of aspirin

== ENCOUNTER 2017-06-24 02:16 | Observation (INO) | payer MEDICARE, MEDICAID ==
[2017-06-24] VITALS (9 sets, daily range): BP systolic 111–162; BP diastolic 45–81; PULSE 48–58; RESP 15–18; O2SAT 94–98
[~2017-06-24] VITALS: Ht 182.9 cm; Wt 65.8 kg
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
[2017-06-24 02:58] LABS: BASOPHILS % (AUTO) 0.2 % (0-3); EOSINOPHILS % (AUTO) 1.1 % (0-5); MONOCYTES % (AUTO) 6.6 % (4-12); Mean Corpuscular Hemoglobin 29.2 pg (27.0-35.0); Mean Corpuscular Volume 91.4 fL (81-100); NEUTROPHILS % (AUTO) 66.5 % (40-74); Platelet Count 224 bil/L (150-400)
[2017-06-24 03:13] LABS: TROPONIN T 0.01 ug/L (0.0-0.011)
[2017-06-24 03:27] LABS: Magnesium 1.7 mg/dL (1.6-2.6)
[2017-06-24] MEDS ORDERED: Polyethylene Glycol (PEG) 17 Gm Powder PO PRN (08:05)
[2017-06-24] MEDS ORDERED: Ondansetron 2 mg/mL 2 mL Inj IVPUSH PRN (08:05)
--- NOTE | 2017-06-24 08:55 | DRSVH ---
PROCEDURE: X-RAY CHEST ONE VIEW, PORTABLE ([id number]) INDICATIONS: CHEST PAIN TECHNIQUE: One view of the chest was acquired. COMPARISON: [facility], CT, CT ANGIO CHEST PE, 06/24/2017, 4:20. [facility], CR, XR CHEST 1VW (PORTABLE), 05/28/2017, 0:58. FINDINGS: Surgical changes and devices: Extensive postsurgical changes are redemonstrated in the mediastinum. Lungs and pleura: No pleural effusions or pneumothorax. There is hyperinflation of the lungs with f lattening of the hemidiaphragms compatible with COPD. there is bibasilar scarring again noted. No a cute consolidation. Mediastinum: Mediastinal contours appear unchanged. Heart size is normal. Bones and chest wall: No suspicious bony lesions. Overlying soft tissues appear unremarkable. Mult iple healed right anterior lateral fractures redemonstrated. Chronic right sternoclavicular separati on. IMPRESSION: Lung volumes are increased suggesting COPD, correlate with pulmonary functions test. No acute cardiopulmonary process identified. Dictated by: Branden YAÑEZ Interpreted: Aleyda Nixon MD on 06/24/2017 at 8:53 Transcribed by: HELDER on 06/24/2017 at 8:54 Approved by: Damián Donald M.D. on 06/24/2017 at 16:53
--- NOTE | 2017-06-24 09:08 | DRSVH ---
PROCEDURE: CT ANGIO CHEST PULMONARY EMBOLISM ([id number]) INDICATIONS: cp, sob, elevated d dimer TECHNIQUE: After the administration of intravenous contrast, 2 mm thick sections acquired from the pulmonary [place] to the posterior costophrenic angles. 3-dimensional maximum intensity projection (MIP) coronal a nd sagittal reformats were then acquired through the thorax. For radiation dose reduction, the follo wing was used: automated exposure control, adjustment of mA and/or kV according to patient size. COMPARISON: [facility], CT, CT ANGIO CHEST PE, 10/16/2016, 9:53. FINDINGS: Image quality: Excellent. Pulmonary arteries: Pulmonary arteries are normal in size, and demonstrate no intraluminal filling d efects to suggest central pulmonary embolism. Lungs and pleura: Lungs are clear. Prominent emphysematous changes are present bilaterally. No pleu ral effusions or pneumothorax. Central and peripheral airways are patent. Mediastinum: Heart size is mildly enlarged, without pericardial effusion. No mediastinal or hilar a denopathy. The ascending thoracic aorta is enlarged measuring 45 mm in transverse dimension, unchange d.. Esophagus is normal in caliber, without hiatal hernia. Bones and chest wall: No suspicious bony lesions. Ribs and thoracic spine appear intact throughout. Thyroid gland is unremarkable. No axillary or supraclavicular adenopathy. Abdomen: Visualized upper abdominal solid organs appear normal in the early arterial phase of enhanc ement. IMPRESSION: 1. No evidence of pulmonary embolus. 2. COPD changes. No superimposed consolidations or effusions. 3. Ascending thoracic aneurysmal dilation, unchanged. Dictated by: Aleyda Nixon M.D. on 06/24/2017 at 9:04 Approved by: Aleyda Nixon M.D. on 06/24/2017 at 9:07
--- NOTE | 2017-06-24 10:42 | PCM.HPMED ---
Subjective Date of Service Jun 24, 2017 Primary Provider: Admitting Physician: Paradise Travis MD Primary Care Physician: Tiff Attending Physician: Paradise Travis MD History of Present Illness: Patient is a very poor historian, refused to answer questions in detail 77-year-old male with previous history of CABG x2, [place] x2, CAD, hypertension, COPD and atrial fibrillation, noncompliant to medications presented after acute onset left sided chest pain yesterday while he was watching TV. Patient stated that he has been on and off since yesterday, initially it was 3-4 out of 10, denied having any other associated symptoms, difficulty breathing or sweating, nausea, blurry vision or headache. Patient was concerned about his pain and called ambulance. Patient denied fever, chills, cough, sputum, nausea, vomiting , abdominal pain. Patient stated that he followed up with Dr. Josue in the past but since he missed several appointments, he was refused to be seen, currently not taking any medication. Emergency department VS BP 150s, HR mildly brady58, afebrile, 94% on RA, labs showed trop negativex2, d-dimer positive, CTA negative for PE. CXR no acute chg. EKG showed no st/t chg Review of Systems: Pertinent positives as noted in history of present illness. All other systems were reviewed and are negative Allergies Coded Allergies: No Known Allergies (Verified , 10/19/16) Home Medications Patient is not taking any medication PMH As described above in history of present illness, however patient refused to tell in details about his past medical history Surgical History CABG Family History Denied Fmx of CAD Social History Hx Alcohol Use: No Hx Substance Use: No Hx Tobacco Use: Yes Smoking Status: Current Every Day Smoker Additional Information lives alone Exam Vital Signs Vital Sign - Last Date Time Temp Pulse Resp B/P Pulse Ox O2 Delivery O2 Flow Rate FiO2 06/24/17 10:18 48 06/24/17 09:02 36.7 18 162/81 94 Room Air Exam NAD, comfortably laying down on the bed no JVD, MMM, no LAD RRR, nl s1, s2 no mrg CTAB, no w,c S,ND,NT,normoactive BS+ warm, no edema, pulses 2/2 Lab and Diagnostics Result Diagram: 06/24/17 02306/24/17 0230 Assessment & Plan Acute, active chest pain, POA, high risks of ACS given previous CABG, CAD, no medication, EKG- no st/t chg. tropx2 neg. s/p aspirin 162mg in ED -will get TTE, stress test, -morphine prn for chest pain, -continue aspirin 81mg, lipitor 80mg then 40mg, [id number] bid, [id number] -consider cardiology consult based on the result mild cognitive dysfunction, POA, likely chronic due to dementia, pt seems to have poor understanding of dz process, likely needs to arrange HH, RN visit. Chronic, stable, afib, HTN, monitor BP, rhythms on telemetry Dispo: Patient is admitted under observation status with expectation that she will be discharged within 24-48 hours, diet:DASH dvt ppx:SCD Full code Time spent 65min Amanda Travis MD Jun 24, 2017 10:42
[2017-06-24] MEDS ORDERED: SENN-133 PO (13:41)
[2017-06-24] MEDS ORDERED: ISOS30TA4 PO (13:41)
[2017-06-24] MEDS ORDERED: DOCU-41 PO (13:41)
[2017-06-24] MEDS ORDERED: WARF5TAB7 PO (13:41)
[2017-06-24] MEDS ORDERED: CALC1CAP22 PO (13:41)
[2017-06-24] MEDS ORDERED: CARV6.252 PO (13:41)
[2017-06-24] MEDS ORDERED: SYMINH INHALATION (13:47)
[2017-06-24] MEDS ORDERED: Albuterol 2.5 mg/3 mL Inhalation Solution NEB PRN (14:20)
--- NOTE | 2017-06-24 16:45 | DRSVH ---
PROCEDURE: EITHER REST OR STRESS ONLY Resting myocardial perfusion SPECT, with gated imaging and ejection fraction RADIOPHARMACEUTICAL: 9.4 mCi 99m-Tc tetrafosmin IV. INDICATIONS: 77 year-old male with known coronary disease presents with unstable angina. TECHNIQUE: Radiopharmaceutical was injected at rest. SPECT images were obtained. SPECT myocardial perfusion images were displayed in short axis, horizontal long axis, and vertical long axis views. G ated images were reviewed using Auto[employer] software. COMPARISON: None. FINDINGS: Raw data: There is good tracer uptake by the myocardium. No significant motion artifacts. Left ventricle function: Gated images demonstrate left ventricle wall thickening. No segmental wall motion abnormalities. No transient ischemic dilation. Left ventricle resting end-diastolic volume is normal. Left ventricle resting ejection fraction is 60%; normal values are above 45%. Myocardial perfusion: There is small, mildly decreased activity in the midanterior wall. IMPRESSION: Incomplete examination. The stress portion of the test was canceled. 1. There is a small, mild perfusion defect in the mid anterior wall at rest, which could be secondary to a non-transmural infarct or related to attenuation artifact. 2. Normal left ventricular volume and systolic function. 3. The stress portion of the examination was refused by the patient. PQRS ATTESTATIONS: Measure 322 - Is this imaging test primarily performed on a low-risk surgery patient for preoperative evaluation within 30 days preceding their low-risk non-cardiac surgery? Low-risk surgery is defined as cardiac or myocardial infarction less than 1%, including (but not limited to) endoscopic pr ocedures, superficial procedures, cataract surgery, and excisional breast surgery: Answer: No Measure 323 - Is this imaging test performed primarily for the monitoring of an asymptomatic patient who had percutaneous coronary intervention on the visit date or within 2 years of the visit date? An swer: No Measure 324 - Is this imaging test performed primarily for the initial detection and risk assessment on an asymptomatic, low coronary heart disease patient? Low CHD risk definition = clinicians should consider the maximum number of available patient factors used to estimate risk based on Golden (A TP III criteria), typically age, gender, diabetes, smoking status, and use of blood pressure medicati on, and integrate age appropriate estimates for missing elements, such as LDL or standard blood press ure. Answer: No Dictated by: Janay Silva M.D. on 06/24/2017 at 16:35 Approved by: Janay Silva M.D. on 06/24/2017 at 16:43
--- NOTE | 2017-06-24 17:07 | DRSVH ---
[facility] [address] [place] [address] Echocardiogram Report Name: JEANNIE BLANCO CStudy Date: 06/24/2017 Height: 74 in Hospital Exam Location: [facility] Weight: 15 0 lb Gender: Male BSA: 1.9 m2 : 1940 Age: 77 yrs BP: 130/67 mmHg Reason For Study: CAD Ordering Physician: HOSPITALIST [facility] Performed By: Keri Alejandro Referring Physician: Brady Cabrera Interpretation Summary The left ventricle is normal in size. Left ventricular systolic function is low normal. The ejection fraction is estimated to be 50-55%. Cannot exclude hypokinesis along the basal inferior wall. Otherwise, there has been no significant change since the previous study. Assessment of diastolic parameters indicates a relaxation abnormality of the left ventricle, consistent with normal filling pressures. The right ventricle is borderline dilated. The right ventricular systolic function is normal. Right ventricular systolic function has increased since previous exam. The right ventricular systolic pressure is estimated at least 29 mmHg assuming a right atrial pressure of 3 mm Hg. There has been no significant change since the previous study. The left atrial size is normal. The right atrium is moderately dilated. There is borderline mitral valve prolapse. There is trace mitral regurgitation. There is no hemodynamically significant valvular aortic stenosis. The calculated aortic valve area is 1.5 cm2. The aortic valve is mildly calcified. The peak aortic velocity is 2.3 m/sec. The peak aortic velocity on the previous exam was 2.4 m/sec. The ascending aorta is mildly enlarged. Procedure: A two-dimensional transthoracic echocardiogram with color flow and Doppler was performed. The study quality was technically good. Comparison is made with the echocardiogram of 10/13/16. The patient was in sinus bradycardia with heart rates between 49 AND 82 bpm during the exam. Left Ventricle: The left ventricle is normal in size. There is mild asymmetric left ventricular hypertrophy. Left ventricular systolic function is low normal. The ejection fraction is estimated to be 50-55%. There has been no significant change since the previous study. Assessment of diastolic parameters indicates a relaxation abnormality of the left ventricle, consistent with normal filling pressures. Right Ventricle: The right ventricle is borderline dilated. The right ventricular systolic function is normal. Right ventricular systolic function has increased since previous exam. Atria: The left atrial size is normal. The right atrium is moderately dilated. There is no Doppler evidence for an interatrial shunt. Mitral Valve: The mitral valve leaflets appear thickened, but open well. There is borderline mitral valve prolapse. There is trace mitral regurgitation. Aortic Valve: The aortic valve is trileaflet. The aortic valve is mildly calcified. There is no hemodynamically significant valvular aortic stenosis. The calculated aortic valve area is 1.5 cm2. The peak aortic velocity is 2.3 m/sec. The peak aortic velocity on the previous exam was 2.4 m/sec. The aortic valve mean gradient is 10 mmHg. There is trace aortic regurgitation. Tricuspid Valve: The tricuspid valve is normal. There is borderline tricuspid valve prolapse. There is mild tricuspid regurgitation. The right ventricular systolic pressure is estimated at least 29 mmHg assuming a right atrial pressure of 3 mm Hg. There has been no significant change since the previous study. Pulmonic Valve: The pulmonic valve leaflets are thin and pliable; valve motion is normal. There is trace pulmonic regurgitation. Great Vessels: The aortic root is normal size. The ascending aorta is mildly enlarged. The aortic arch could not be visualized. The pulmonary artery is normal size. The IVC is of normal diameter and collapses greater than 50% with a sniff. This suggests a low right atrial pressure of 3 mm Hg. Pericardium/ Pleura There is no pericardial effusion. There is no pleural effusion. MMode/2D Measurements & Calculations LVIDd: 4.3 cm RA long axis LVOT diam LVIDs: 3.8 cm LA A2 area: 26.6 cm FS: 12.1 % LA A4 area: 14.0 cm RA area AoV Opening EPSS: 1.2 cm LA length (vol): 5.5 cm IVSd: 0.97 cm LA vol: 57.1 ml : 22.3 cm Ao root diam LVPWd: 1.3 cm LA vol index RA vol : 90.3 ml asc Aorta RA Diam: 3.8 cm IVC diam: 1.5 cm : 47.0 mm2 LV carrizales. diameter/BSA LV sys. diameter/BSA RVD1 (basal) RVD2 (mid) (cm/m^2): 2.3 (cm/m^2): 2.0 : 3.3 cm Doppler Measurements & Calculations Ao V2 max MV E max tong MV E/A: 0.94 TR max tong : 231.1 cm/sec : 64.3 cm/sec Med Peak E' Tong : 256.1 cm/sec Ao max PG MV A max tong TR max PG : 21.4 mmHg : 68.6 cm/sec E/E' med: 12.2 : 26.2 mmHg Ao mean PG MV P1/2t: 96.8 msec Lat Peak E' Tong PA V2 max : 10.4 mmHg : 75.9 cm/sec LVOT Max Tong E/E' lat: 9.8 PA mean PG : 76.5 cm/sec E/e' average MORGAN(I,D): 1.5 cm PA Accel Time sev ratio : 0.06 sec MV dec time MV P1/2t max tong Ao V2 mean LV V1 max PG : 0.33 sec : 151.6 cm/sec Ao V2 VTI: 47.2 cm LV V1 VTI MVA(P1/2t): 2.3 cm2 : 14.3 cm MORGAN(V,D): 1.6 cm2 PA V2 mean MORGAN indexed to BSA : 47.1 cm/sec (cm^2/m^2): 0.77 Reading Physician:YODIT
[2017-06-24 18:06] LABS: INR 1.19 ratio
[2017-06-24] MEDS ORDERED: Budesonide-Formot 160-4.5 mCg 6.9 Gm Inhaler INHALATION SCH (20:30)
[2017-06-24] MEDS: Fluticasone-Salmeterol 500-50 Inhaler INHALATION SCH (21:40)
[2017-06-25] VITALS (13 sets, daily range): BP systolic 91–122; BP diastolic 50–69; PULSE 50–66; RESP 16–18; O2SAT 94–98
[2017-06-25] MEDS: Calcium Carbonate (Oyster Shell) 500 mg Tablet PO SCH (08:50)
[2017-06-25] MEDS: Fluticasone-Salmeterol 500-50 Inhaler INHALATION SCH ×2 (08:50→20:30)
[2017-06-25] MEDS: Isosorbide Mononitrate 30 mg ER24 Tablet PO SCH (08:50)
--- NOTE | 2017-06-25 11:22 | PCM.PNMED ---
Subjective Date of Service Jun 25, 2017 Subjective Pt reports as resolution of chest pain overnight, which has not returned this morning. He declined the second part of his stress test yesterday, which provided limited information to possibility of heart disease as a result. When asked why, patient states he did not think it worth the risk when discussed with nursing. This was unexpected given patient's adi of 2 CABG procedures in addition to multiple stress tests conducted in the past. Pts medications compliance recently however, has been consistent. He reports minimal medication compliance prior to coming to hospital with chest pain as well. He was hungry, requesting food, so it was provided. He had no other acute complaints. Exam Vital Signs Vital Sign - Last Date Time Temp Pulse Resp B/P Pulse Ox O2 Delivery O2 Flow Rate FiO2 06/25/17 09:09 36.9 51 18 122/69 94 Room Air Intake and Output 06/24/17 06/24/17 06/25/17 Cumulative From/Thru 15:00 23:00 07:00 06/24/17 02:18 - 06/25/17 06:30 Intake Total 720 ml 100 ml 820 ml Output Total 600 ml 250 ml 850 ml Balance 120 ml -150 ml -30 ml Intake Oral 720 ml 100 ml 820 ml Output Urine Total 600 ml 250 ml 850 ml # Bowel Movements 0 0 General: Alert, Oriented X3, Cooperative, No Acute Distress Mouth: Mucous Membr Moist/[place] Chest & Lungs: Clear to auscultation & percussion, Coarse breath sounds Cardiovascular: Other (sinus bradycardia) Abdomen: Non-tender, Non-distended Extremities: No cyanosis/clubbing/edma bilat Neurological: Grossly Neurologically Intact IVs and Medications Medications Reviewed: Medications were reviewed in detail Lab and Diagnostics Result Diagram: 06/24/17 0230 06/24/17 0230 Assessment & Plan #Acute, Chest pain, POA, Resolved currently - High risk of ACS given previous CABG, CAD, on no medication recently due to noncompliance. - EKG demonstrating no acute changes, troponins trended negative X3. - TTE demonstrating a mild hypokinesis inferiour aspect of heart, small in size and possibility artifactual given location, stress test as noted in subjective was canceled by patient prior to nuclear component rendering results of limited to no utility per cardiology. - Morphine prn for chest pain, - Restarted previously prescribed home medications of :aspirin 81mg, lipitor 80mg then 40mg, [id number] bid, [id number] - Considering cardiology consult however pt remains resistant to study, especially given resolution of chest pain, - Will consider optimal medical management, revisit code status given reluctance to receive medical evaluations/interventions as minimally invasive as stress test. - Consider palliative care consult to pursue goals of care in future and on discharge. #Mild cognitive dysfunction, POA, likely chronic due to dementia, pt seems to have poor understanding of dz process, likely needs to arrange HH, RN visit. #afib; Paroxysmal in nature. Pt has discontinued warfarin therpay at home. Will continue to discuss possibility of restarting, but if he will not maintain regular FU for INR checks, this will be of no use and we will continue to hold. Pt considering. Chronic, stable, , HTN, monitor BP, rhythms on telemetry Dispo: Pt remains unsure of the degree to which he would like to pursue evaluation and intervention. Will continue to observe overnight with medical therapy only, if he remains free of pain likely discharge in AM . Pain Evaluation: Adequate Pain Control Resuscitation Status: CPR: Attempt Resuscitation Time spent 35 minutes Jeffrey Paul DO Jun 25, 2017 11:21
[2017-06-26 04:23] VITALS: BP 139/78; PULSE 58; RESP 16; O2SAT 95
[2017-06-26 05:46] VITALS: PULSE 54
[2017-06-26 07:28] VITALS: PULSE 52; RESP 20; O2SAT 96
[2017-06-26 08:00] VITALS: PULSE 67
[2017-06-26] MEDS: Isosorbide Mononitrate 30 mg ER24 Tablet PO SCH (08:20)
[2017-06-26] MEDS: Fluticasone-Salmeterol 500-50 Inhaler INHALATION SCH (08:20)
[2017-06-26] MEDS: Calcium Carbonate (Oyster Shell) 500 mg Tablet PO SCH (08:20)
[2017-06-26 09:47] VITALS: BP 112/64; PULSE 51; RESP 16; O2SAT 96
--- NOTE | 2017-06-26 11:24 | PCM.DIMED ---
Discharge Instructions Date of Service Jun 26, 2017 Dates of Hospitalization Jun 24, 2017 at 07:36 Discharge Diagnosis Discharge Diagnosis Chest pain Diet Discharge Diet: Heart Healthy Activity Discharge Activity: Other (as tolerated) Call your provider Call your provider for: Fever or Chills, Shortness of breath, Bleeding, Chest pain, Vomitting, Excessive diarrhea, Weakness (unilateral) Patient Instructions Follow-up Provider: [facility] Follow-up with PCP in: 1 week (sooner if problems) Anat Stephen MD Jun 26, 2017 11:24
[2017-06-26] MEDS ORDERED: ATOR40TA69 PO (11:26)
[2017-06-26] MEDS ORDERED: ASPI-973 PO (11:26)
[2017-06-26] MEDS ORDERED: LISI-571 PO (11:26)
[2017-06-26] MEDS ORDERED: NITR0.3T6 SL (11:28)
--- NOTE | 2017-06-26 12:06 | PCM.DC.MED ---
Discharge Summary Date of Service Jun 26, 2017 Dates of Hospitalization Date of Hospital Admission Jun 24, 2017 at 07:36 Date of Discharge: Jun 26, 2017 Providers: Admitting Physician: Paradise Travis MD Primary Care Physician: Tiff Attending Physician: Anat Stephen MD Diagnosis at Time of Discharge Diagnosis at Time of Discharge Chest pain Procedures XRay, CTs & MRIs PROCEDURE: EITHER REST OR STRESS ONLY Resting myocardial perfusion SPECT, with gated imaging and ejection fraction RADIOPHARMACEUTICAL: 9.4 mCi 99m-Tc tetrafosmin IV. INDICATIONS: 77 year-old male with known coronary disease presents with unstable angina. TECHNIQUE: Radiopharmaceutical was injected at rest. SPECT images were obtained. SPECT myocardial perfusion images were displayed in short axis, horizontal long axis, and vertical long axis views. Gated images were reviewed using [employer] software. COMPARISON: None. FINDINGS: Raw data: There is good tracer uptake by the myocardium. No significant motion artifacts. Left ventricle function: Gated images demonstrate left ventricle wall thickening. No segmental wall motion abnormalities. No transient ischemic dilation. Left ventricle resting end-diastolic volume is normal. Left ventricle resting ejection fraction is 60%; normal values are above 45%. Myocardial perfusion: There is small, mildly decreased activity in the midanterior wall. IMPRESSION: Incomplete examination. The stress portion of the test was canceled. 1. There is a small, mild perfusion defect in the mid anterior wall at rest, which could be secondary to a non-transmural infarct or related to attenuation artifact. 2. Normal left ventricular volume and systolic function. 3. The stress portion of the examination was refused by the patient. PQRS ATTESTATIONS: Measure 322 - Is this imaging test primarily performed on a low-risk surgery patient for preoperative evaluation within 30 days preceding their low-risk non- cardiac surgery? Low-risk surgery is defined as cardiac or myocardial infarction less than 1%, including (but not limited to) endoscopic procedures, superficial procedures, cataract surgery, and excisional breast surgery: Answer : No Measure 323 - Is this imaging test performed primarily for the monitoring of an asymptomatic patient who had percutaneous coronary intervention on the visit date or within 2 years of the visit date? Answer: No Measure 324 - Is this imaging test performed primarily for the initial detection and risk assessment on an asymptomatic, low coronary heart disease patient? Low CHD risk definition = clinicians should consider the maximum number of available patient factors used to estimate risk based on [place] ( ATP III criteria), typically age, gender, diabetes, smoking status, and use of blood pressure medication, and integrate age appropriate estimates for missing elements, such as LDL or standard blood pressure. Answer: No Dictated by: Janay Silva M.D. on 06/24/2017 at 16:35 Approved by: Janay Silva M.D. on 06/24/2017 at 16:43 PROCEDURE: CT ANGIO CHEST PULMONARY EMBOLISM ([id number]) INDICATIONS: cp, sob, elevated d dimer TECHNIQUE: After the administration of intravenous contrast, 2 mm thick sections acquired from the pulmonary apices to the posterior costophrenic angles. 3-dimensional maximum intensity projection (MIP) coronal and sagittal reformats were then acquired through the thorax. For radiation dose reduction, the following was used: automated exposure control, adjustment of mA and/or kV according to patient size. COMPARISON: [facility], CT, CT ANGIO CHEST PE, 10/16/2016, 9:53. FINDINGS: Image quality: Excellent. Pulmonary arteries: Pulmonary arteries are normal in size, and demonstrate no intraluminal filling defects to suggest central pulmonary embolism. Lungs and pleura: Lungs are clear. Prominent emphysematous changes are present bilaterally. No pleural effusions or pneumothorax. Central and peripheral airways are patent. Mediastinum: Heart size is mildly enlarged, without pericardial effusion. No mediastinal or hilar adenopathy. The ascending thoracic aorta is enlarged measuring 45 mm in transverse dimension, unchanged.. Esophagus is normal in caliber, without hiatal hernia. Bones and chest wall: No suspicious bony lesions. Ribs and thoracic spine appear intact throughout. Thyroid gland is unremarkable. No axillary or supraclavicular adenopathy. Abdomen: Visualized upper abdominal solid organs appear normal in the early arterial phase of enhancement. IMPRESSION: 1. No evidence of pulmonary embolus. 2. COPD changes. No superimposed consolidations or effusions. 3. Ascending thoracic aneurysmal dilation, unchanged. PROCEDURE: X-RAY CHEST ONE VIEW, PORTABLE ([id number]) INDICATIONS: CHEST PAIN TECHNIQUE: One view of the chest was acquired. COMPARISON: [facility], CT, CT ANGIO CHEST PE, 06/24/2017, 4:20. [facility], CR, XR CHEST 1VW (PORTABLE), 05/28/2017, 0:58. FINDINGS: Surgical changes and devices: Extensive postsurgical changes are redemonstrated in the mediastinum. Lungs and pleura: No pleural effusions or pneumothorax. There is hyperinflation of the lungs with flattening of the hemidiaphragms compatible with COPD. there is bibasilar scarring again noted. No acute consolidation. Mediastinum: Mediastinal contours appear unchanged. Heart size is normal. Bones and chest wall: No suspicious bony lesions. Overlying soft tissues appear unremarkable. Multiple healed right anterior lateral fractures redemonstrated. Chronic right sternoclavicular separation. IMPRESSION: Lung volumes are increased suggesting COPD, correlate with pulmonary functions test. No acute cardiopulmonary process identified. Dictated by: Branden Aleman RRA Interpreted: Aleyda Nixon MD on 06/24/2017 at 8: 53 Transcribed by: HELDER on 06/24/2017 at 8:54 Approved by: Damián Donald M.D. on 06/24/2017 at 16:53 Cardiac Echo Impression Name: JEANNIE BLANCO CStudy Date: 06/24/2017 Height: 74 in Hospital Exam Location: [facility] Weight: 15 0 lb Gender: Male BSA: 1.9 m2 : 1940 Age: 77 yrs BP: 130/67 mmHg Reason For Study: CAD Ordering Physician: [facility] Performed By: Keri Alejandro Referring Physician: Brady Cabrera Interpretation Summary The left ventricle is normal in size. Left ventricular systolic function is low normal. The ejection fraction is estimated to be 50-55%. Cannot exclude hypokinesis along the basal inferior wall. Otherwise, there has been no significant change since the previous study. Assessment of diastolic parameters indicates a relaxation abnormality of the left ventricle, consistent with normal filling pressures. The right ventricle is borderline dilated. The right ventricular systolic function is normal. Right ventricular systolic function has increased since previous exam. The right ventricular systolic pressure is estimated at least 29 mmHg assuming a right atrial pressure of 3 mm Hg. There has been no significant change since the previous study. The left atrial size is normal. The right atrium is moderately dilated. There is borderline mitral valve prolapse. There is trace mitral regurgitation. There is no hemodynamically significant valvular aortic stenosis. The calculated aortic valve area is 1.5 cm2. The aortic valve is mildly calcified. The peak aortic velocity is 2.3 m/sec. The peak aortic velocity on the previous exam was 2.4 m/sec. The ascending aorta is mildly enlarged. Brief History Patient is a very poor historian, refused to answer questions in detail 77-year-old male with previous history of CABG x2, ND x2, CAD, hypertension, COPD and atrial fibrillation, noncompliant to medications presented after acute onset left sided chest pain yesterday while he was watching TV. Patient stated that he has been on and off since yesterday, initially it was 3-4 out of 10, denied having any other associated symptoms, difficulty breathing or sweating, nausea, blurry vision or headache. Patient was concerned about his pain and called ambulance. Patient denied fever, chills, cough, sputum, nausea, vomiting , abdominal pain. Patient stated that he followed up with Dr. Josue in the past but since he missed several appointments, he was refused to be seen, currently not taking any medication. Emergency department VS BP 150s, HR mildly brady58, afebrile, 94% on RA, labs showed trop negativex2, d-dimer positive, CTA negative for PE. CXR no acute chg. EKG showed no st/t chg Hospital Course #Acute, Chest pain, POA, Resolved currently - High risk of ACS given previous CABG, CAD, on no medication recently due to noncompliance. - EKG demonstrating no acute changes, troponins trended negative X3. - TTE demonstrating a mild hypokinesis inferiour aspect of heart, small in size and possibility artifactual given location, stress test as noted in subjective was canceled by patient prior to nuclear component rendering results of limited to no utility per cardiology. - Morphine prn for chest pain, - Restarted previously prescribed home medications of :aspirin 81mg, lipitor 80mg then 40mg, [id number] bid, [id number] - Considering cardiology consult however pt remains resistant to study, especially given resolution of chest pain, - Will consider optimal medical management, since patient refuses further investigative studies regarding possible coronary artery disease. He will be discharged with sublingual nitroglycerin when necessary. He is advised to follow-up with [facility]. Apparently he has been fired by Dr. William's office for follow-up noncompliance. -Patient has remained chest pain-free during his hospital stay. #Mild cognitive dysfunction, POA, likely chronic due to dementia, pt seems to have poor understanding of dz process, likely needs to arrange HH, RN visit. #afib; Paroxysmal in nature. Pt has discontinued warfarin therpay at home. Will continue to discuss possibility of restarting, but if he will not maintain regular FU for INR checks, this will be of no use and we will continue to hold. Patient will be discharged on ASA and not warfarin therapy. Chronic, stable, , HTN, monitor BP, rhythms on telemetry Exam Vital Signs (Last) Date Time Temp Pulse Resp B/P Pulse Ox O2 Delivery O2 Flow Rate FiO2 06/26/17 09:47 36.8 51 16 112/64 96 Room Air Exam Constitutional: Elderly male in no acute distress Head: Normocephalic atraumatic Neck: No adenopathy Chest: Clear to auscultation Cor: Regular rate and rhythm S1-S2 Abdomen: Soft nontender bowel sounds present Extremities: No pedal edema Skin: No rashes Psych: Patient has a blunted affect Neuro: Alert and oriented 3, motor strength is intact bilaterally Test 06/24/17 02:30 06/24/17 03:10 06/24/17 04:45 06/24/17 12:03 White Blood Count 8.7th/mm3 (3.8-10.1) Red Blood Count 4.31mil/mm3 (4.40-5.80) Hemoglobin 12.6g/dL (13.8-17.2) Hematocrit 39.4% (41.0-50.0) Mean Corpuscular Volume 91.4fL (81-100) Mean Corpuscular Hemoglobin 29.2pg (27.0-35.0) Mean Corpuscular Hemoglobin Concent 32.0% (32.0-37.0) Red Cell Distribution Width 14.0% (12.3-15.4) Platelet Count 224bil/L (150-400) Neutrophils (%) (Auto) 66.5% (40-74) Lymphocytes (%) (Auto) 25.4% (14-46) Monocytes (%) (Auto) 6.6% (4-12) Eosinophils (%) (Auto) 1.1% (0-5) Basophils (%) (Auto) 0.2% (0-3) Sodium Level 141mEq/L (134-144) Potassium Level 3.8mEq/L (3.5-5.2) Chloride Level 100mEq/L (97-108) Carbon Dioxide Level 25mmol/L (18-29) Blood Urea Nitrogen 27mg/dL (8-27) Creatinine 1.06mg/dL (0.76-1.27) Estimat Glomerular Filtration Rate 72mL/min (>59) Glucose Level 115mg/dL (60-99) Calcium Level 9.7mg/dL (8.5-10.1) Magnesium Level 1.7mg/dL (1.6-2.6) Total Bilirubin 0.2mg/dL (0.0-1.2) Aspartate Amino Transf (AST/SGOT) 23U/L (0-50) Alanine Aminotransferase (ALT/SGPT) 30U/L (0-44) Alkaline Phosphatase 109U/L (25-160) Pro-B-Type Natriuretic Peptide 343pg/mL (0-486) Total Protein 7.5g/dL (6.4-8.4) Albumin 4.1g/dL (3.4-5.0) Hold [place] Top Tube Received (Received) Prothrombin Time 12.8sec (8.1-12.5) Prothromb Time International Ratio 1.19ratio D-Dimer 1.49mg/L FEU (<0.50) Hold Urine Received (Received) Troponin T 0.010ug/L (0.0-0.011) Discharge Medications Discharge Medications Aspirin (Aspirin) 81 Mg Tablet 81 MG PO DAILY Prescribed by: ANAT STEPHEN MD Atorvastatin Calcium (Atorvastatin Calcium) 40 Mg Tablet 40 MG PO DAILY Prescribed by: ANAT STEPHEN MD Budesonide/Formoterol 160-4.5 mcg Inh (Symbicort 160-4.5 mcg Inh) 120 Puff Inhaler 2 PUFF INHALATION BID (Reported) Calcium Carbonate/Vitamin D3 (Calcium 600 + Vit D 400 Softgl) 1 Each Capsule 1 EACH PO DAILY (Reported) Carvedilol (Carvedilol) 6.25 Mg Tablet 6.25 MG PO BID (Reported) Isosorbide MN ER (Isosorbide MN ER) 30 Mg Tab.er.24h 30 MG PO DAILY (Reported) Lisinopril (Lisinopril) 5 Mg Tablet 5 MG PO DAILY Prescribed by: ANAT STEPHEN MD Sennosides (Senna) 8.6 Mg Tablet 17.2 MG PO BID (Reported) As needed Docusate Sodium (Colace) 100 Mg Capsule 100 MG PO BID PRN PRN For Constipation ( Reported) Nitroglycerin (Nitroglycerin) 0.3 Mg Tab.subl 0.3 MG SL Q5MIN PRN PRN For Chest Pain Prescribed by: ANAT STEPHEN MD Followup Plan Disposition: Home Discharge Diet: Heart Healthy Discharge Activity: Other (as tolerated) Follow-up Provider: [facility] Follow-up with PCP in: 1 week (sooner if problems) Time spent 45 minutes copies to: [facility] Anat Stephen MD Jun 26, 2017 12:06
== END 2017-06-26 16:44 | disposition home or self-care (01) ==
LOC: SED 02:16 → MPC 07:36
PROVIDERS: ADMIT Hospitalist; ATTEND Specialist
DX: R07.89 Other chest pain (principal); I25.10 Atherosclerotic heart disease of native coronary artery without angina pectoris; I10 Essential (primary) hypertension; J44.9 Chronic obstructive pulmonary disease, unspecified; I48.91 Unspecified atrial fibrillation; I25.2 Old myocardial infarction; F09 Unspecified mental disorder due to known physiological condition; R06.02 Shortness of breath; F17.210 Nicotine dependence, cigarettes, uncomplicated; Z95.1 Presence of aortocoronary bypass graft; Z79.82 Long term (current) use of aspirin; Z79.899 Other long term (current) drug therapy